=== PATIENT | male | born 1995 ===

== ENCOUNTER → 2020-05-14 | Emergency (ER) | payer SELFPAY ==
[~2020-05-14] VITALS: Ht 177 cm; Wt 117.9 kg
[~2020-05-14] MED LIST: ALBUTEROL/IPRATROP (COMBIVENT RESPIMAT) 4 GM INHALER IH STA; NS IV 1000 ML 1,000 ML IV SCH; ONDA4TAB11 PO; ONDANSETRON 4 MG/2 ML (SDV) Z0FRAN IVP ONE; RT-ALBUINH IH
[2020-05-14 16:25] VITALS: BP 130/95
--- NOTE | 2020-05-14 17:02 | ED Respiratory ---
General Chief Complaint: General Problems/Pain Stated Complaint: COVID+/SOB Nursing Triage Note: PT ARRIVES TO THE ER WITH C/O WORSENING COVID SYMPTOMS. PT STATES IT HURTS TO BREATH AND LUNGS ARE SORE AND THIS STARTED 3 DAYS AGO. PT WAS TESTED POSITIVE ON 04/08 AT [facility] IN [place]. Source: patient Exam Limitations: no limitations History of Present Illness Date Seen by Provider: May 14, 2020 Time Seen by Provider: 16:45 Initial Comments Patient is a 24-year-old male who presents to the emergency department today with a chief complaint of shortness of breath, cough, intermittent sore throat, fevers and Covid positive status. Patient states he started having symptoms of coronavirus last Tuesday. He states he had a positive test on Tuesday. Patient states that he is continued to decline and has had worse and worse shortness of breath. He states his breathing is shallow and tight that he cannot get a good deep breath. It makes him cough and makes him nauseous. Patient also endorses diarrhea that is nonblack nonbloody. Patient lives at home with his mother who is also Covid positive currently. He states he has had some mild decreased appetite. All other review of systems reviewed and negative except as stated above. Timing/Duration: week Severity: moderate Associated Symptoms: cough, fever/chills, headache, muscle aches, shortness of breath Allergies and Home Medications Allergies Coded Allergies: No Known Drug Allergies (Unverified , 05/14/20) Patient Home Medication List Home Medication List Reviewed: Yes Review of Systems Review of Systems Constitutional: see HPI, fever, malaise, weakness EENTM: throat pain Respiratory: cough, short of breath Cardiovascular: no symptoms reported Gastrointestinal: diarrhea Genitourinary: no symptoms reported Musculoskeletal: no symptoms reported Skin: no symptoms reported All Other Systems Reviewed Negative Unless Noted: Yes Past Sbuuqdd-Lyiwam-Qghbnb Hx Patient Social History Alcohol Use: Denies Use Recreational Drug Use: No 2nd Hand Smoke Exposure: No Recent Foreign Travel: No Contact w/Someone Who Travel: No Recent Infectious Disease Expo: Yes Recent Hopitalizations: No Physical Abuse: No Sexual Abuse: No Mistreated: No Fear: No Immunizations Up To Date Tetanus Booster (TDap): Unknown PED Vaccines UTD: Yes Seasonal Allergies Seasonal Allergies: No Past Medical History Surgeries: No Respiratory: No Cardiac: No Neurological: No Genitourinary: No Gastrointestinal: No Musculoskeletal: No Endocrine: No HEENT: No Cancer: No Anxiety, Depression Integumentary: No Physical Exam Vital Signs - First Documented 05/14/20 16:25 Temp 37.3 Pulse 102 Resp 20 B/P (MAP) 130/95 (107) Pulse Ox 97 O2 Delivery Room Air Capillary Refill : Less Than 3 Seconds Height: '" Weight: lbs. oz. kg; 37.00 BMI Method: General Appearance: WD/WN, no apparent distress Eyes: Bilateral Eye Normal Inspection, Bilateral Eye PERRL, Bilateral Eye EOMI HEENT: pharynx normal Neck: full range of motion, supple, normal inspection Respiratory: lungs clear, normal breath sounds, no respiratory distress, no accessory muscle use Cardiovascular: regular rate, rhythm, no murmur Gastrointestinal: normal bowel sounds, non tender, soft Neurologic/Psychiatric: alert, normal mood/affect, oriented x 3 Skin: normal color, warm/dry Progress/Results/Core Measures Suspected Sepsis Recent Fever Within 48 Hours: Yes Infection Criteria Present: Documented Infection New/Unexplained Altered Menta: No Sepsis Screen: Possible Severe Sepsis Risk SIRS Temperature: Pulse: 102 Respiratory Rate: 20 Laboratory Tests 05/14/20 16:40: White Blood Count 3.9L Blood Pressure 130 /95 Mean: 107 Laboratory Tests 05/14/20 16:40: Creatinine 0.87, Platelet Count 218 Results/Orders Lab Results Laboratory Tests Test 05/14/20 16:40 Range/Units White Blood Count 3.9 L 4.3-11.0 10^3/uL Red Blood Count 5.02 4.30-5.52 10^6/uL Hemoglobin 14.4 13.3-17.7 g/dL Hematocrit 44 40-54 % Mean Corpuscular Volume 88 80-99 fL Mean Corpuscular Hemoglobin 29 25-34 pg Mean Corpuscular Hemoglobin Concent 33 32-36 g/dL Red Cell Distribution Width 13.2 10.0-14.5 % Platelet Count 218 130-400 10^3/uL Mean Platelet Volume 8.5 L 9.0-12.2 fL Immature Granulocyte % (Auto) 1 % Neutrophils (%) (Auto) 61 42-75 % Lymphocytes (%) (Auto) 32 12-44 % Monocytes (%) (Auto) 6 0-12 % Eosinophils (%) (Auto) 0 0-10 % Basophils (%) (Auto) 0 0-10 % Neutrophils # (Auto) 2.4 1.8-7.8 10^3/uL Lymphocytes # (Auto) 1.3 1.0-4.0 10^3/uL Monocytes # (Auto) 0.2 0.0-1.0 10^3/uL Eosinophils # (Auto) 0.0 0.0-0.3 10^3/uL Basophils # (Auto) 0.0 0.0-0.1 10^3/uL Immature Granulocyte # (Auto) 0.0 0.0-0.1 10^3/uL Sodium Level 138 135-145 MMOL/L Potassium Level 3.6 3.6-5.0 MMOL/L Chloride Level 102 98-107 MMOL/L Carbon Dioxide Level 23 21-32 MMOL/L Anion Gap 13 5-14 MMOL/L Blood Urea Nitrogen 6 L 7-18 MG/DL Creatinine 0.87 0.60-1.30 MG/DL Estimat Glomerular Filtration Rate > 60 BUN/Creatinine Ratio 7 Glucose Level 102 70-105 MG/DL Calcium Level 7.4 L 8.5-10.1 MG/DL My Orders Orders - BERNARDINO RUIZ MD Cbc With Automated Diff (05/14/20 16:56) Basic Metabolic Panel (05/14/20 16:56) Chest 1 View, Ap/Pa Only (05/14/20 16:56) Ed Iv/Invasive Line Start (05/14/20 16:56) Ondansetron Injection (Zofran Injectio (05/14/20 17:15) Ns Iv 1000 Ml (Sodium Chloride 0.9%) (05/14/20 17:15) Albuterol/Ipratropium Inhaler (Combivent (05/14/20 17:12) Rt Request For Service (05/14/20 17:12) Medications Given in ED Current Medications Medications Dose Ordered Sig/Peewee Route Start Time Stop Time Status Last Admin Dose Admin Ondansetron HCl 4 mg ONCE ONCE IVP 05/14/20 17:15 05/14/20 17:16 DC 05/14/20 17:24 4 MG Vital Signs/I&O 05/14/20 16:25 Temp 37.3 Pulse 102 Resp 20 B/P (MAP) 130/95 (107) Pulse Ox 97 O2 Delivery Room Air Capillary Refill : Less Than 3 Seconds Blood Pressure Mean: 107 Progress Note : Time: 17:02 Progress Note 24-year-old male presents to the emergency department today with a chief complaint of shortness of breath secondary to coronavirus today his evaluation includes a physical exam, chest x-ray, CBC, Chem-7. Patient is treated in the emergency department with 4 mg of IV Zofran and a liter of IV fluids. He is also given albuterol 4 to 6 puffs for his shortness of breath. Pending laboratory evaluation the patient is not hypoxic and therefore in all likelihood will be discharged home. Patient's chest x-ray shows mild midlung patchy infiltrates bilaterally. Will be discharged home with albuterol inhaler and Zofran for home. Good return precautions given. Patient verbalized understanding all questions are sought and answered he is stable for discharge. Diagnostic Imaging Diagonstic Imaging: Xray Plain Films/CT/US/NM/MRI: chest Comments [facility], [place] NAME: SHANIQUE LAKHANI [facility] REC#: [id number] PT STATUS: REG ER : 1995 PHYSICIAN: BERNARDINO RUIZ MD ADMIT DATE: 05/14/20/ER Signed Date of Exam:05/14/20 CHEST 1 VIEW, AP/PA ONLY INDICATION: Shortness of breath and cough. Frontal chest obtained at 5:18 p.m. There is no prior study for comparison. Heart and mediastinal silhouette are normal in appearance. There are some mild patchy infiltrates in the mid lung base on both sides. There is poor inspiration. There is no pneumothorax or pleural fluid. IMPRESSION: Poor inspiration. There are mild patchy infiltrates in the midlung and base on both sides compatible with atypical pneumonia. Dictated by: Dictated on workstation # [id number] Dict: 05/14/208 Trans: 05/14/201742 [facility] [id number] Interpreted by: YUNG MENA MD Electronically signed by: YUNG MENA MD 05/14/201742 Departure Impression Primary Impression: Pneumonia Qualified Codes: J18.9 - Pneumonia, unspecified organism Additional Impression: Coronavirus infection Disposition: 01 HOME, SELF-CARE Condition: Stable Departure-Patient Inst. Decision time for Depature: 18:24 Referrals: [facility] [place] Instructions: Aspiration Pneumonia (DC), Coronavirus Disease 2019 (COVID-19) (DC) Add. Discharge Instructions: Drink plenty of fluids to stay well-hydrated. Use the albuterol inhaler 2 puffs every 4-6 hours as needed for shortness of breath. You can take the Zofran as prescribed every 8 hours for nausea. If you have any worsening symptoms, shortness of breath, chest pain high fever that does not resolve with Tylenol or ibuprofen please return for reevaluation. Please follow-up with your primary care provider. Scripts Ondansetron (Ondansetron Odt) 4 Mg Tab.rapdis 4 MG PO Q8H PRN for nausea, #15 TAB Prov: BERNARDINO RUIZ MD 05/14/20 Albuterol Sulfate (PROAIR HFA) 1 Puff Puff 2 PUFF IH Q4H, #1 PUFF 1 PUFF = 90 MCG Prov: BERNARDINO RUIZ MD 05/14/20 BERNARDINO RUIZ MD May 14, 2020 17:02
[2020-05-14 17:04] LABS: BASOPHILS % (AUTO) 0 % (0-10); EOSINOPHILS % (AUTO) 0 % (0-10); HEMATOCRIT 44 % (40-54); HEMOGLOBIN 14.4 g/dL (13.3-17.7); LYMPHOCYTES # (AUTO) 1.3 10^3/uL (1.0-4.0); LYMPHOCYTES % (AUTO) 32 % (12-44); MEAN CORPUSCULAR HEMOGLOBIN 29 pg (25-34); MEAN CORPUSCULAR HGB CONC 33 g/dL (32-36); MEAN CORPUSCULAR VOLUME 88 fL (80-99); MEAN PLATELET VOLUME 8.5 fL (9.0-12.2); MONOCYTES # (AUTO) 0.2 10^3/uL (0.0-1.0); MONOCYTES % (AUTO) 6 % (0-12); NEUTROPHILS # (AUTO) 2.4 10^3/uL (1.8-7.8); NEUTROPHILS % (AUTO) 61 % (42-75); PLATELET COUNT 218 10^3/uL (130-400); WHITE BLOOD COUNT 3.9 10^3/uL (4.3-11.0)
[2020-05-14 17:09] LABS: CHLORIDE 102 MMOL/L (98-107); POTASSIUM 3.6 MMOL/L (3.6-5.0); SODIUM 138 MMOL/L (135-145)
[2020-05-14 17:10] LABS: CALCIUM 7.4 MG/DL (8.5-10.1)
[2020-05-14 17:11] LABS: GLUCOSE 102 MG/DL (70-105)
[2020-05-14 17:12] LABS: CARBON DIOXIDE 23 MMOL/L (21-32)
[2020-05-14 17:15] LABS: CREATININE SERUM 0.87 MG/DL (0.60-1.30); GFR ESTIMATED > 60
[2020-05-14 17:16] LABS: BUN/CREATININE RATIO 7
--- NOTE | 2020-05-14 17:30 | Diagnostic Imaging Report ---
INDICATION: Shortness of breath and cough. Frontal chest obtained at 5:18 p.m. There is no prior study for comparison. Heart and mediastinal silhouette are normal in appearance. There are some mild patchy infiltrates in the mid lung base on both sides. There is poor inspiration. There is no pneumothorax or pleural fluid. IMPRESSION: Poor inspiration. There are mild patchy infiltrates in the midlung and base on both sides compatible with atypical pneumonia. Dictated by: Dictated on workstation # [id number]
== END ==
LOC: ER 15:54
DX: U07.1 COVID-19 (principal); J18.9 Pneumonia, unspecified organism
CPT/HCPCS: 36415; 71045; 80048; 85025